=== PATIENT | male | born 1985 | race Caucasian/White ===

== ENCOUNTER 2019-06-14 20:21 | Emergency (ER) | payer MEDICAID ==
[~2019-06-14] VITALS: Ht 182.9 cm; Wt 137.0 kg
[~2019-06-14 20:21] MED LIST: BACI28.34 TOP; NAPR-985 PO
[2019-06-14 20:28] VITALS: Ht 182.9 cm; Wt 137.0 kg
[2019-06-15] MEDS ORDERED: IBUPROFEN 800 MG TAB PO STA (00:03)
[2019-06-15] MEDS ORDERED: LIDOCAINE 2%/EPI MPF (SDV) 20 ML VIAL INJ STA (00:03)
[2019-06-15] MEDS ORDERED: DIPHTH/TET/ACEL PERTUSS (ADULT) 0.5 ML VIAL IM* ONE (00:30)
[2019-06-15 01:16] VITALS: BP 138/86; PULSE 77; RESP 18
== END 2019-06-15 01:17 | disposition home or self-care (01) ==
LOC: FTE 20:21
DX: S41.112A Laceration without foreign body of left upper arm, initial encounter (principal); W26.8XXA Contact with other sharp object(s), not elsewhere classified, initial encounter; Y92.9 Unspecified place or not applicable; Z23 Encounter for immunization
CPT/HCPCS: 12002; 90471; 90715; Z7502; Z7610